=== PATIENT | male | born 1950 | race Two or more races ===

== ENCOUNTER 2018-04-13 17:21 | Emergency (ER) | payer MEDICARE, MEDICAID ==
[~2018-04-13] VITALS: Ht 167.6 cm; Wt 83.9 kg
[2018-04-13] MEDS ORDERED: METFORMIN HCL500 M1 ORAL (17:37)
--- NOTE | 2018-04-13 17:55 | Emergency Room Report ---
History of Present Illness General Chief Complaint: Lower Extremity Injury Source: Patient Present Illness HPI 68-year-old male patient presents ER complaining of right lower extremity pain status post injury earlier today. Reports that he was at an auto [employer] [place] when a pile of tires collided into his calf, states it caused to twist his ankle in an eversion injury. Reports pain with ambulating. Denies taking any medications. Denies any loss consciousness. Reports pain in his calf. Denies hitting his head or loss consciousness. Allergies: Coded Allergies: No Known Allergies (Unverified , 04/13/18) Patient History Past Medical History: see triage record Reviewed Nursing Documentation: PMH: Agreed; PSxH: Agreed Nursing Documentation-PMH Past Medical History: No History, Except For Hx Hypertension: Yes Hx Diabetes: Yes Review of Systems All Other Systems: negative except mentioned in HPI Physical Exam Vital Signs Date Time Temp Pulse Resp B/P (MAP) Pulse Ox O2 Delivery O2 Flow Rate FiO2 04/13/18 17:30 98.4 70 18 196/92 95 Room Air 98.4 Sp02 EP Interpretation: reviewed, normal General Appearance: well appearing, no apparent distress, alert, GCS 15, non- toxic Head: normocephalic, atraumatic Eyes: bilateral eye normal inspection, bilateral eye PERRL ENT: hearing grossly normal, normal pharynx, no angioedema, normal voice, uvula midline, moist mucus membranes Neck: full range of motion Respiratory: lungs clear, normal breath sounds, no rhonchi, no respiratory distress, no accessory muscle use, no wheezing, speaking full sentences Cardiovascular #1: regular rate, rhythm, no edema Cardiovascular #2: 2+ dorsalis pedis (R), 2+ dorsalis pedis (L) Musculoskeletal: back normal, digits/nails normal, gait/station normal, normal range of motion, Sulaiman's Sign negative, swelling, other - NVI, no deformity, cap refill less than 2 seconds, negative syndesmotic squeeze test, tender - right calf, dorsum of medial right ankle, base of fifth metatarsal, posterior left lateral malleolus Neurologic: alert, oriented x3, responsive, motor strength/tone normal, sensory intact Skin: no rash Medical Decision Making PA Attestation Dr. Harry is my supervising Physician whom patient management has been discussed with. Diagnostic Impression: Primary Impression: Ankle sprain Additional Impression: Contusion of right calf ER Course Pt. presents to the ED c/o right ankle, foot, calf pain. Ddx considered but are not limited to fracture, sprain, strain, contusion, dislocation. No erythema, no warmth to touch, no fever, nontoxic appearing, low suspicion for septic joint. Vital signs: are WNL, pt. is afebrile Ordered X-ray and pain medication. ER COURSE Provided with pain medication. An X-ray of the right ankle shows negative for the preliminary reading. An X-ray of the right foot shows negative for the preliminary reading. likely ankle sprain and contusion causing pain symptoms. air splint and Noel wrap was applied to the right ankle and was checked afterwards by me showing good alignment and support with distal neurovascular functioning intact. cane provided, patient declined crutches. Patient instructed on RICE method: rest, ice, compression, elevation. Patient instructed on rest, ice and heat. Patient instructed to be WBAT Contact information for orthopedic urgent care provided, follow-up with urgent care if unable to followup with primary care provider and get referral to orthopedics nurse. Followup with primary care provider. Discuss referral to ortho/pain management/ PT as needed. Discuss further imaging with MRI/CT as needed. DISCHARGE: -Rx provided for Ibuprofen for pain symptoms. At this time pt. is stable for d/c to home. Patient is resting comfortably, in no acute distress, nontoxic appearing, talking without difficulty. Will provide printed patient care instructions, and any necessary prescriptions. Patient instructed to follow with primary care provider in 3 - 5 days and to request further follow-up as needed. Care plan and follow up instructions have been discussed with the patient prior to discharge. Take medications as directed. Patient questions asked and answered. Patient reports understanding and agreement to treatment plan. ER precautions given, patient instructed to return to ER immediately for any new or worsening of symptoms. - Please note that this Emergency Department Report was dictated using [employer] liaison technology software, occasionally this can lead to erroneous entry secondary to interpretation by the dictation equipment. Other X-Ray Diagnostic Results Other X-Ray Diagnostic Results #1: X-Ray ordered: right foot # of Views/Limited Vs Complete: 3 View Indication: Pain EP Interpretation: Yes PA Xray: Interpretation reviewed, by supervising MD, and agrees with findings. Interpretation: no dislocation, no soft tissue swelling, no fractures Impression: No acute disease AR Scribe Text Haja Stanton PA-C Other X-Ray Diagnostic Results #2: X-Ray ordered: right ankle # of Views/Limited Vs Complete: 3 View Indication: Pain EP Interpretation: Yes PA Xray: Interpretation reviewed, by supervising MD, and agrees with findings. Interpretation: no dislocation, no soft tissue swelling, no fractures Impression: No acute disease AR Scribe Text Haja Stanton PA-C Last Vital Signs Date Time Temp Pulse Resp B/P (MAP) Pulse Ox O2 Delivery O2 Flow Rate FiO2 04/13/18 17:30 98.4 70 18 196/92 95 Room Air 98.4 Disposition: HOME, SELF-CARE Condition: Stable Scripts Ibuprofen* (MOTRIN*) 600 Mg Tablet 600 MG ORAL Q8H PRN for For Pain, #30 TAB 0 Refills Prov: Devendra Stanton 04/13/18 Patient Instructions: Ankle Sprain Additional Instructions: Patient instructed to follow up with primary care provider and discuss further referral to orthopedics/physical therapy/pain management as needed. If unable to followup with PCP, followup with orthopedic urgent care in 5-7 days , call to schedule appointment. Patient instructed on RICE method: rest, ice, compression, elevation. Patient instructed to WBAT. Take medications as directed. Patient questions asked and answered. ER precautions given, patient instructed to return to ER immediately for any new or worsening of symptoms. [facility] [address] [facility] [address] [facility], [id number] [email or web address] Devendra Stanton Apr 13, 2018 17:55
[2018-04-13] MEDS ORDERED: Ketorolac 30mg Inj IM ONE (18:00)
[2018-04-13] MEDS ORDERED: IBUPROFEN600 MG ORAL (18:49)
[2018-04-13 19:10] VITALS: BP 196/92
--- NOTE | 2018-04-14 10:38 | Diagnostic Imaging Report ---
Indication: Foot Pain Comparison: None Findings: 3 views of the right foot were obtained. There is a plantar calcaneal spur demonstrated. Soft tissue swelling may be present. There is no fracture or malalignment definitely identified. IMPRESSION: No acute injury appreciated
--- NOTE | 2018-04-14 10:40 | Diagnostic Imaging Report ---
Indication: Pain right ankle ankle pain/trauma Comparison: None Findings: 3 views of the right ankle obtained. There is no malalignment or fracture identified. Alignment is normal. There is a plantar calcaneal enthesophyte at the plantar aponeurosis insertion. There is a small focus of the lucency along the medial aspect of the talar dome suspicious for a small osteochondral defect or subchondral cyst associated with degenerative arthritis. No plain film evidence for arthritis identified. Evaluation with MRI may be of benefit. This is likely an incidental finding given patient presents with recent ankle trauma. IMPRESSION: No acute fracture or malalignment. 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 Evaluation with MRI may be of benefit.
== END 2018-04-13 19:11 | disposition home or self-care (01) ==
LOC: EMR 18:32
DX: S93.401A Sprain of unspecified ligament of right ankle, initial encounter (principal); S80.11XA Contusion of right lower leg, initial encounter; W20.8XXA Other cause of strike by thrown, projected or falling object, initial encounter; Y92.513 Shop (commercial) as the place of occurrence of the external cause; I10 Essential (primary) hypertension; E11.9 Type 2 diabetes mellitus without complications
CPT/HCPCS: 73610; 73630; 96372; 99284; J1885